=== PATIENT | female | born 1995 | race Caucasian/White ===

== ENCOUNTER 2017-01-20 16:38 | Inpatient (IN) | payer MEDICAID, OTHER ==
[~2017-01-20] VITALS: Ht 162.6 cm; Wt 51.3 kg
[2017-01-20] MEDS ORDERED: PREN-155 PO (16:54)
[2017-01-20 17:32] LABS: ANION GAP 7 mmol/L (8-16); CARBON DIOXIDE 27 mmol/L (22-29); CHLORIDE 104 mmol/L (98-107); CREATININE 0.58 mg/dL (0.60-1.30); GLOMERULAR FILTR. RATE CALC > 60 mL/min (>60); POTASSIUM 4.2 mmol/L (3.5-5.1); SODIUM SERUM 138 mmol/L (136-145); UREA NITROGEN, BLOOD 10 mg/dL (7-18)
[2017-01-20 17:58] LABS: ALANINE AMINOTRANSFERASE 25 U/L (12-78); ALBUMIN 3.8 g/dL (3.4-5.0); ASPARTATE AMINOTRANSFERASE 17 U/L (15-37); TOTAL PROTEIN, SERUM 7.5 g/dL (6.4-8.2)
[2017-01-20 18:36] LABS: BASOPHILS % (AUTO) 0.5 % (0.0-2.0); EOSINOPHILS % (AUTO) 0.7 % (1.0-6.0); HEMATOCRIT 37.7 % (36-46); LYMPHOCYTES # (AUTO) 2.1 K/uL (1.0-4.8); LYMPHOCYTES % (AUTO) 23.8 % (22.0-44.0); MEAN CORPUSCULAR HEMOGLOBIN 33.1 pg (26.0-34.0); MEAN CORPUSCULAR HGB CONC 34.6 G/dL (31.0-37.0); MEAN CORPUSCULAR VOLUME 96 fL (80-100); MONOCYTES # (AUTO) 0.6 K/uL (0.1-1.0); MONOCYTES % (AUTO) 6.6 % (2.0-9.0); NEUTROPHILS # (AUTO) 6.1 K/uL (1.8-7.7); NEUTROPHILS % (AUTO) 68.4 % (40.0-70.0); PLATELET COUNT (AUTO) 194 K/uL (150-450); RED BLOOD CELL COUNT(AUTO) 3.93 MIL/uL (4.00-5.20); RED CELL DISTRIBUTION WIDTH 13.8 % (11.5-14.5)
[2017-01-20 20:50] LABS: APPEARANCE,URINE CLOUDY (CLEAR); GLUCOSE, URINE (UA) NEGATIVE (NEGATIVE); KETONES,URINE NEGATIVE (NEGATIVE); LEUKOCYTE ESTERASE ,URINE SMALL (NEGATIVE); OCCULT BLOOD,URINE NEGATIVE (NEGATIVE); PH,URINE 6.5 (5.0-8.0); PROTEIN,URINE NEGATIVE (NEGATIVE)
[2017-01-20 20:51] LABS: ADD UA MICROSCOPIC YES
[2017-01-20 20:58] LABS: RBC,URINE None Seen /HPF (0-2)
[2017-01-20 20:59] LABS: SQUAMOUS EPITHELIAL CELL,UR Few /LPF (None Seen)
[2017-01-21 17:58] VITALS: BP 101/58
[2017-01-21 21:54] LABS: CHOL/HDL RATIO 2.6 (3.9-5.7)
[2017-01-22 09:00] VITALS: BP 126/74
[2017-01-22] MEDS: CEPHALEXIN MONOHYDRATE 500 MG CAPSULE PO SCH (16:31)
[2017-01-22 17:00] VITALS: BP 117/76
[2017-01-23] MEDS: CEPHALEXIN MONOHYDRATE 500 MG CAPSULE PO SCH ×2 (00:07→09:02)
[2017-01-23] MEDS ORDERED: PRENATAL VIT#96/FERROUS FUM/FA TABLET PO SCH (09:00)
[2017-01-23 09:45] VITALS: BP 118/68
[2017-01-23] MEDS ORDERED: CEPH500 PO (11:12)
== END 2017-01-23 12:40 | disposition home or self-care (01) | DRG 566 ==
LOC: EMS 16:41 → 3EC 01-21 15:49 → 3EI 01-22 13:40
PROVIDERS: ADMIT Psychiatry & Neurology Psychiatry; ATTEND Psychiatry & Neurology Psychiatry
DX: O99.341 Other mental disorders complicating pregnancy, first trimester (principal); R45.851 Suicidal ideations; F43.21 Adjustment disorder with depressed mood; O23.41 Unspecified infection of urinary tract in pregnancy, first trimester; F43.10 Post-traumatic stress disorder, unspecified; Z3A.01 Less than 8 weeks gestation of pregnancy
CPT/HCPCS: 76801; 76817; 87086; 99285; G0480